=== PATIENT | female | born 1965 | race American Indian/Alaskan Native ===

== ENCOUNTER 2018-09-14 07:34 | Day surgery (SDC) | payer MEDICAID ==
[~2018-09-14 07:34] MED LIST: NACL 0.9% 1000 ML 1,000 ML IV SCH
[2018-09-14] MEDS ORDERED: WATER FOR IRRIG STERILE IR ONE (07:40)
--- NOTE | 2018-09-14 07:56 | Anesthesia Day of Surgery ---
Anesthesia Day of Surgery - Day of Surgery Patient Examined: Yes Patient H&P Reviewed: Yes Patient is NPO: Yes Beta Blockers: No
--- NOTE | 2018-09-14 07:57 | Anesthesia Consultation ---
Anesthesia Consult and Med Hx Date of service: 09/14/18 - Airway Anesthetic Teeth Evaluation: Good ROM Head & Neck: Adequate Mental/Hyoid Distance: Adequate Mallampati Class: Class III Intubation Access Assessment: Good - Pulmonary Exam CTA: Yes - Cardiac Exam Cardiac Exam: No Murmur - Pre-Operative Health Status ASA Pre-Surgery Classification: ASA3 Proposed Anesthetic Plan: MAC - Pulmonary Hx Asthma: Yes COPD: Yes Hx Sleep Apnea: Yes - Cardiovascular System Hx Hypertension: Yes - Endocrine Hx Non-Insulin Dependent Diabetes: Yes Hx Hypothyroidism: Yes - Other Systems Hx Obesity: Yes
[2018-09-14] MEDS ORDERED: VERSED ONE (08:04)
[2018-09-14] MEDS ORDERED: XYLOCAINE 2% INFILTRATI ONE (08:04)
[2018-09-14] MEDS ORDERED: DIPRIVAN 10 MG/ML IV ONE (08:04)
--- NOTE | 2018-09-14 12:27 | Operative Report ---
PREOPERATIVE DIAGNOSIS: Morbid obesity. POSTOPERATIVE DIAGNOSIS: Small hiatal hernia, 2 cm. PROCEDURE: EGD. SPECIMENS: None. COMPLICATIONS: None. BLEEDING: None. INDICATIONS: The patient is a 53-year-old female with a history of morbid obesity. She is here for preoperative EGD. Informed consent was obtained. DESCRIPTION OF PROCEDURE: The patient was brought to the GI suite where she was placed in the left lateral decubitus position and underwent MAC anesthesia. A bite block was placed and a timeout was called. A standard adult gastroscope was inserted into the oropharynx, down the esophagus, into the stomach. On retroflexion view, I noted a small hiatal hernia approximately 2 cm in length. There were no abnormalities up to the level of D1. With this, the air was desufflated. The scope was removed. The patient tolerated the procedure with no issues and was transferred to the PACU in stable condition. JOB# [id number] BROOKLYNN/DHEERAJ RAO
[2018-09-14 15:01] VITALS: BP 126/82
== END 2018-09-14 07:35 | disposition home or self-care (01) ==
LOC: GIO 07:34
PROVIDERS: ATTEND Specialist
DX: K30 Functional dyspepsia (principal); K44.9 Diaphragmatic hernia without obstruction or gangrene; K21.9 Gastro-esophageal reflux disease without esophagitis; E66.01 Morbid (severe) obesity due to excess calories; G43.909 Migraine, unspecified, not intractable, without status migrainosus; E78.00 Pure hypercholesterolemia, unspecified; I10 Essential (primary) hypertension; J44.9 Chronic obstructive pulmonary disease, unspecified; G47.30 Sleep apnea, unspecified; M06.9 Rheumatoid arthritis, unspecified; E11.9 Type 2 diabetes mellitus without complications; E03.9 Hypothyroidism, unspecified; F32.9 Major depressive disorder, single episode, unspecified; F41.9 Anxiety disorder, unspecified; Z98.890 Other specified postprocedural states; Z79.84 Long term (current) use of oral hypoglycemic drugs; Z79.899 Other long term (current) drug therapy; Z68.43 Body mass index [BMI] 50.0-59.9, adult; Z90.49 Acquired absence of other specified parts of digestive tract; Z98.51 Tubal ligation status; Z96.651 Presence of right artificial knee joint; Z88.8 Allergy status to other drugs, medicaments and biological substances
CPT/HCPCS: 43235; 82962; J2250; J2704; J7030